=== PATIENT | female | born 1985 | race Caucasian/White ===

== ENCOUNTER 2018-06-06 05:39 | Inpatient (IN) | payer OTHER ==
[2018-06-06] MEDS ORDERED: NALOXONE (0.4 MG/ML) INJ IV (06:30)
[2018-06-06] MEDS ORDERED: LIDOCAINE 2% (SDV) 5 ML INJ (06:33)
[2018-06-06] MEDS ORDERED: NEOSTIGMINE 3 MG/3 ML SYRINGE (06:33)
[2018-06-06] MEDS ORDERED: GLYCOPYRROLATE 0.4 MG INJ (06:33)
[2018-06-06] MEDS ORDERED: ROCURONIUM 50 MG INJ (06:33)
[2018-06-06] MEDS ORDERED: PROPOFOL 20 ML (06:33)
[2018-06-06] MEDS ORDERED: FENTAnyl 50 MCG/ML VIAL (06:33)
[2018-06-06] MEDS ORDERED: MIDAZOLAM 1 MG/ML 2 ML INJ (06:33)
[2018-06-06] MEDS ORDERED: ONDANSETRON 4 MG INJ (06:34)
[2018-06-06] MEDS ORDERED: DEXAMETHASONE 4 MG/ML 1 ML INJ (06:34)
[2018-06-06] MEDS ORDERED: morphine SULFATE/PF (10 MG/10 ML) INJ (07:15)
[2018-06-06] MEDS ORDERED: BUPIVACAINE 0.75%/DEXT (SPINAL) 2 ML INJ (07:15)
[2018-06-06] MEDS ORDERED: SUCCINYLCHOLINE CHLORIDE 100 MG/5 ML SYG IV (07:18)
[2018-06-06] MEDS ORDERED: morphine 2 MG INJ IV (10:00)
[2018-06-06] MEDS ORDERED: ACETAMINOPHEN 325 MG TAB PO (10:00)
[2018-06-06] MEDS: CEFAZOLIN 2 GM/50 ML (PMX) 50 ML IVPB ×2 (10:00→18:17)
[2018-06-06] MEDS ORDERED: KETOROLAC 30 MG INJ IV (10:00)
[2018-06-06] MEDS ORDERED: DIPHENHYDRAMINE 50 MG INJ (10:06)
[2018-06-06] MEDS ORDERED: CEFAZOLIN 1 GM INJ (10:07)
[2018-06-06] MEDS: HYDROmorphONE 1 MG/5 ML IV SYRINGE IV (10:23)
[2018-06-06] MEDS: DIPHENHYDRAMINE 50 MG INJ IV (10:24)
[2018-06-06] MEDS ORDERED: LABETALOL HCL 20MG INJ IV (10:30)
[2018-06-06] MEDS ORDERED: hydrALAzine 20 MG INJ IV (10:30)
[2018-06-06] MEDS ORDERED: ATROPINE 1 MG/10 ML SYRINGE IV (10:30)
[2018-06-06] MEDS ORDERED: ONDANSETRON 4 MG INJ IV (10:30)
[2018-06-06] MEDS ORDERED: OXYCODONE/ACETAMINOPHEN (5/325) TAB PO ×2 (10:30)
[2018-06-06] MEDS ORDERED: MIDAZOLAM 1 MG/ML 2 ML INJ IV (10:30)
[2018-06-06] MEDS ORDERED: EPHEDrine SULFATE 50 MG/5 ML SYG IV (10:30)
[2018-06-06] MEDS ORDERED: HYDROmorphONE 1 MG/5 ML IV SYRINGE IV ×2 (10:30)
[2018-06-06] MEDS ORDERED: MEPERIDINE 25 MG INJ IV (10:30)
[2018-06-06] MEDS ORDERED: morphine (1 MG/ML) 10ML SYRINGE IV ×3 (10:30)
[2018-06-06] MEDS ORDERED: FENTAnyl 50 MCG/ML VIAL IV ×2 (10:30)
[2018-06-06] MEDS: LACTATED RINGER'S 1,000 ML IV ×2 (10:35→23:11)
[2018-06-06] MEDS: ONDANSETRON 4 MG INJ IV (19:09)
[2018-06-06] MEDS: HYDROCODONE/APAP (5/325) TAB PO (23:07)
[2018-06-07] MEDS: CEFAZOLIN 2 GM/50 ML (PMX) 50 ML IVPB (02:38)
[2018-06-07 05:04] LABS: ADD MAN DIFF? NO
[2018-06-07 05:07] LABS: BASOPHILS % 0.3 % (0.0-2.0); EOSINOPHILS % 0.3 % (0.0-7.0); HEMATOCRIT 37.5 % (37.0-47.0); HEMOGLOBIN 12.1 g/dl (12.0-16.0); LYMPHOCYTES % 22.8 % (15.0-51.0); MEAN CORPUSCULAR HEMOGLOBIN 30.1 pg (29.0-33.0); MEAN CORPUSCULAR HGB CONC 32.3 g/dl (32.0-37.0); MEAN CORPUSCULAR VOLUME 93.3 fl (82.0-101.0); MEAN PLATELET VOLUME 10.1 fl (7.4-10.4); MONOCYTE # 0.8 10^3/ul (0.3-0.9); MONOCYTES % 9.1 % (0.0-11.0); NEUTROPHIL # 5.9 10^3/ul (1.6-7.5); NEUTROPHILS % 67.2 % (39.0-77.0); PLATELET COUNT 227 10^3/UL (140-415); RED BLOOD COUNT 4.02 10^6/ul (4.20-5.40); RED CELL DISTRIBUTION WIDTH 12.8 % (11.5-14.5)
[2018-06-07 05:07] LABS: WHITE BLOOD COUNT 8.8 10^3/ul (4.8-10.8)
[2018-06-07 05:24] LABS: ANION GAP 10 (8-16); BLOOD UREA NITROGEN 7 mg/dl (7-20); CALCIUM 8.6 mg/dl (8.4-10.2); CARBON DIOXIDE 28 mmol/L (21-31); CHLORIDE 106 mmol/L (97-110); CREATININE 0.61 mg/dl (0.44-1.00); GLUCOSE 105 mg/dl (70-220); POTASSIUM 3.9 mmol/L (3.5-5.1); SODIUM 140 mmol/L (135-144)
[2018-06-07] MEDS: PANTOPRAZOLE 40 MG INJ IV (05:59)
[2018-06-07] MEDS: HYDROCODONE/APAP (5/325) TAB PO (09:48)
[2018-06-09] MEDS ORDERED: IBUPROFEN 600 MG TAB PO (10:00)
== END 2018-06-07 10:40 | disposition home or self-care (01) | DRG 743 ==
LOC: REC 05:39 → PP2 12:54
PROC: 0UB20ZZ Excision of Bilateral Ovaries, Open Approach (ICD-10-PCS; principal; 2018-06-06 07:30)
DX: D27.1 Benign neoplasm of left ovary (principal); D27.0 Benign neoplasm of right ovary; E66.01 Morbid (severe) obesity due to excess calories; Z68.38 Body mass index [BMI] 38.0-38.9, adult; F99 Mental disorder, not otherwise specified; K29.70 Gastritis, unspecified, without bleeding
CPT/HCPCS: 80048; 84703; 85025; 87086; 88305